=== PATIENT | male | born 1970 | race Caucasian/White ===

== ENCOUNTER 2017-12-20 21:46 | Observation (INO) | payer BC ==
[2017-12-20] MEDS ORDERED: ASPIRIN 81 MG CHEW TAB PO ONE (21:59)
--- NOTE | 2017-12-20 21:59 | ED Physician Documentation ---
General Adult - HISTORIAN Historian: patient, spouse - HPI Stated Complaint: chest pain Chief Complaint: General Adult Onset: hours Timing: still present Severity: moderate Further Comments: yes (Pt is a 47 yo male with hx HTN, gout, GERD, who c/o chest pain. Pt was noticed to be [id number] yesteday and this am. 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 He was confused at home about letting the dog out. This am he became nauseated and had chest pain at work. The pain radiated to his L shoulder blade. The pt attributed this to GERD and it went away. Chest pain occurred again this evening, toghether with nausea. Pt has had sob, but he had attributed that to his exertions at work. Pain is 2/10 severity on presentation. Pain was 7/10 earlier at home.) - ROS CONST: no problems EYES/ENT: none CVS/RESP: chest pain, shortness of breath GI/: nausea MS/SKIN/LYMPH: none - PAST HX Past History: other (GERD, GOUT, HTN, herpes zoster affecting eye) Surgeries/Procedures: other (appendectomy, orthopedic surg) Allergies/Adverse Reactions: Allergies Allergy/AdvReac Type Severity Reaction Status Date / Time No Known Allergies Allergy Unverified 12/20/17 22:10 Home Medications: Ambulatory Orders Medication Instructions Recorded Allopurinol [Zyloprim] 300 mg PO DAILY 12/20/17 Esomeprazole Magnesium [Nexium] 40 mg PO DAILY 12/20/17 Lisinopril [Prinivil] 20 mg PO QD 12/20/17 Metoprolol Tartrate [Lopressor] 50 mg PO BID 12/20/17 Spironolactone [Aldactone] 50 mg PO DAILY 12/20/17 Valacyclovir HCl [Valtrex] 500 mg PO DAILY 12/20/17 Venlafaxine HCl [Effexor Xr] 150 mg PO DAILY 12/20/17 - SOCIAL HX Smoking History: cigarettes - FAMILY HX Family History: No - REVIEWED ASSESSMENTS Nursing Assessment Reviewed: Yes Vitals Reviewed: Yes Progress - Progress Progress: chest pain 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 admit to ER physician for observation, r/o NV due to pt's sx and relief with nitro. - EKG/XRAY/CT EKG: NSR (HR=89; occasional PVC; normal EKG.) XRAY: chest (no acute process) General Adult Physical Exam - PHYSICAL EXAM GENERAL APPEARANCE: moderate distress EENT: pharynx normal NECK: normal inspection, supple RESPIRATORY: no resp distress, chest non-tender, breath sounds normal CVS: reg rate & rhythm, heart sounds normal ABDOMEN: soft, no organomegaly, normal bowel sounds BACK: normal inspection, no CVA tenderness SKIN: warm/dry, normal color EXTREMITIES: non-tender, normal range of motion, no evidence of injury NEURO: oriented X3, motor nml, sensation nml Discharge Clincal Impression: Chest pain Qualifiers: Chest pain type: unspecified Qualified Code(s): R07.9 - Chest pain, unspecified Referrals: Yamilka Arechiga MD [STAFF PHYSICIAN] - Condition: Stable Disposition: ADMITTED INPATIENT Decision to Admit: NO Decision Time: 00:51
[2017-12-20 22:11] LABS: BASOPHILS % 0.6 (0.0-1.5); EOSINOPHILS % 2.6 % (0.0-6.8); MEAN CORPUSCULAR HEMOGLOBIN 32.8 pg (28.0-34.0); MEAN CORPUSCULAR VOLUME 94.3 fl (80.0-100.0); MONOCYTES % 5.2 % (0.0-11.0); NEUTROPHILS # 5.6 # k/uL (1.4-7.7)
[2017-12-20] MEDS ORDERED: MAG HYDROX/AL HYDROX/SIMETH 30 ML UDC PO ONE (22:14)
[2017-12-20] MEDS ORDERED: Lidocaine 2%Visc 15ml 20 MG/ML UDC ONE (22:14)
[2017-12-20] MEDS ORDERED: MAG HYDROX/AL HYDROX/SIMETH 30 ML, Lidocaine 2%Visc 15ml 20 MG, PHENobarb/HYOSCY/ATROPI... PO ONE ×3 (22:14)
[2017-12-20] MEDS ORDERED: ONDANSETRON HCL/PF 4 MG/ 2ML VIAL ONE (22:18)
[2017-12-20] MEDS ORDERED: 0.9 % SODIUM CHLORIDE 500 ML IV ONE (22:24)
[2017-12-20] MEDS ORDERED: 0.9 % SODIUM CHLORIDE 1,000 ML IV ONE (22:24)
[2017-12-20] MEDS ORDERED: NITROGLYCERIN 0.4 MG TAB.SUBL SL ONE ×2 (22:24→22:25)
[2017-12-20] MEDS ORDERED: ONDANSETRON HCL/PF 4 MG/ 2ML VIAL IVP ONE (22:24)
[2017-12-20 22:30] LABS: eGFR (African) > 60; eGFR (Non-African) > 60
[2017-12-21] MEDS ORDERED: 0.9 % SODIUM CHLORIDE 1,000 ML IV ONE (01:08)
[2017-12-21 02:00] VITALS: BMI 29.0
[2017-12-21] MEDS ORDERED: LISINOPRIL 20 MG TABLET PO SCH (05:26)
--- NOTE | 2017-12-21 08:35 | Diagnostic Imaging Report ---
KEZIA PHOENIX [facility] [address] [facility] [address] [address] Report Submission Date: Dec 20, 2017 11:03:19 PM CDT Patient Study Name: KATELIN ROBLERO Date: Dec 20, 2017 10:39:49 PM CDT Modality Type: DX Gender: M Description: CHEST : 74 Institution: [facility] Physician: KEZIA PHOENIX Chest AP portable at 2239 hours of December 20, 2017. Clinical history: Dyspnea and chest pain. Normal heart shadow and mediastinum. Clear lungs without acute infiltrate or pleural effusion. Normal bony thorax. Impression: No active pulmonary pathology Electronically signed on Dec 20, 2017 11:03:19 PM CDT by: Derick MARIE
--- NOTE | 2017-12-21 08:36 | Diagnostic Imaging Report ---
JENNIFER WHITLEY (STRANDING MACHINE OPERATOR) - ER [facility] [address] [facility] [address] [place], [place]. [address] Report Submission Date: Dec 21, 2017 8:25:45 AM CDT Patient Study Name: KATELIN ROBLERO Date: Dec 21, 2017 8:00:54 AM CDT Modality Type: CT\SR Gender: M Description: CT BRAIN W/O CONTRAST : 74 Institution: [facility] Physician: JENNIFER WHITLEY (STRANDING MACHINE OPERATOR) - ER Examination: CT head without contrast History: CT HEAD W/O, INTERMITTENT CONFUSION SINCE YESTERDAY (Hx) / ITS.REASON confusion; intermittent (DICOM Hx) Comparison exam: None available Technique: Noncontrast head CT protocol. Findings: Ventricles and sulci are appropriate for patient age. Cerebrocerebellar parenchyma demonstrates normal attenuation. No evidence for parenchymal hemorrhage. No evidence for mass or mass effect. No midline shift. No extra axial fluid collections. Partial visualization of the paranasal sinuses demonstrates maxillary sinus air fluid levels. Mastoid air cells, orbits , skull and scalp without gross irregularity. Impression: No acute parenchymal process. No hemorrhage. Bilateral maxillary sinus air-fluid levels. Electronically signed on Dec 21, 2017 8:25:45 AM CDT by: Krzysztof MARIE
[2017-12-21] MEDS ORDERED: ALLOPURINOL 100 MG TABLET PO SCH (09:00)
[2017-12-21] MEDS ORDERED: VENLAFAXINE HCL 37.5 MG CAP.ER.24H PO SCH (09:00)
[2017-12-21] MEDS ORDERED: METOPROLOL TARTRATE 50 MG TABLET PO SCH (09:00)
[2017-12-21] MEDS ORDERED: SPIRONOLACTONE 25 MG TABLET PO SCH (09:00)
[2017-12-21] MEDS ORDERED: PANTOPRAZOLE SODIUM 40 MG TABLET PO ONE (09:00)
[2017-12-21 11:19] VITALS: BP 118/73
--- NOTE | 2017-12-21 23:05 | Discharge Summary ---
Discharge Summary - Discharge Sumary History of Present Illness: 47 year old male patient admitted through Er with complaints of chest pain for Rule out NE. Condition at Discharge: Stable Home Medications: Ambulatory Orders Medication Instructions Recorded Allopurinol [Zyloprim] 300 mg PO DAILY 12/20/17 Esomeprazole Magnesium [Nexium] 40 mg PO DAILY 12/20/17 Lisinopril [Prinivil] 20 mg PO QD 12/20/17 Metoprolol Tartrate [Lopressor] 50 mg PO BID 12/20/17 Spironolactone [Aldactone] 50 mg PO DAILY 12/20/17 Valacyclovir HCl [Valtrex] 500 mg PO DAILY 12/20/17 Venlafaxine HCl [Effexor Xr] 150 mg PO DAILY 12/20/17 Allopurinol [Zyloprim] 300 mg PO DAILY tablet 12/21/17 Spironolactone [Aldactone] 50 mg PO DAILY tablet 12/21/17 Venlafaxine HCl [Effexor Xr] 150 mg PO DAILY cap.er.24h 12/21/17 Consultations this Visit: None Procedures this Visit: None Allergies/Adverse Reactions: Allergies Allergy/AdvReac Type Severity Reaction Status Date / Time No Known Allergies Allergy Unverified 12/20/17 22:10 Discharge Summary: Patient ruled out with negative cardiac enzymes. reports patient had transient period of confusion and disorientation on Monday and . CT Head completed - negative. Patient reports increased depression - started see psychiatrist last week, next appointment on Monday; denies suicidal plan; does admit to increased depression related to father's and feelings of worthlessness. Follow up appointment with [place] TAYLOR for Monday at 1030
== END 2017-12-21 13:05 | disposition home or self-care (01) ==
LOC: ED 21:46 → SOUTH 21:48 → UNDOADMOB 12-21 01:07 → UNDODISOB 12-21 13:05
PROVIDERS: ADMIT Emergency Medicine; ATTEND Emergency Medicine
DX: R07.9 Chest pain, unspecified (principal); I10 Essential (primary) hypertension; F41.8 Other specified anxiety disorders; M10.9 Gout, unspecified; K21.9 Gastro-esophageal reflux disease without esophagitis
CPT/HCPCS: 36415; 70450; 71045; 80053; 80061; 82550; 82553; 84484; 85025; 85379; 93005; 96365; 96375; 99284; A9270; G0378; J2405; J7060; 99217; 99218; S1016

== ENCOUNTER 2017-12-25 15:42 | Outpatient (CLI) | payer BC | END 2017-12-25 15:43 | LOC: LAB 15:42 | PROVIDERS: ATTEND Nurse Practitioner Family | DX: R94.5 Abnormal results of liver function studies (principal) | CPT/HCPCS: 36415; 82728 ==

== ENCOUNTER 2018-10-04 14:57 | Outpatient (CLI) | payer BC ==
[2018-10-04 15:30] LABS: BASOPHILS % 0.7 (0.0-1.5); EOSINOPHILS % 3.2 % (0.0-6.8); MEAN CORPUSCULAR HEMOGLOBIN 32.6 pg (28.0-34.0); MONOCYTES % 6.6 % (0.0-11.0); NEUTROPHILS # 5.2 # k/uL (1.4-7.7)
--- NOTE | 2018-10-04 20:59 | Diagnostic Imaging Report ---
NARCISO MEYER [facility] [address] [facility] [address] [address] Report Submission Date: Oct 04, 2018 4:14:25 PM CHIEF DEPUTY CORONER Patient Study Name: KATELIN ROBLERO Date: Oct 04, 2018 3:00:24 PM CHIEF DEPUTY CORONER Modality Type: DX Gender: M Description: CHEST : 74 Institution: [facility] Physician: NARCISO MEYER Examination: PA and lateral chest. History: Evaluate lung hobson. Comparison exam: 20 December 2017 Findings: PA and lateral views of the chest demonstrates a normal cardiac and mediastinal silhouette. No focal infiltrate. No blunting of the costophrenic margins. Osseous structures are appropriate for age. Impression: No acute pulmonary process. Electronically signed on Oct 04, 2018 4:14:25 PM CHIEF DEPUTY CORONER by: Krzysztof MARIE
== END 2018-10-04 15:00 ==
LOC: LAB 14:57
PROVIDERS: ATTEND Family Medicine
DX: R50.9 Fever, unspecified (principal)
CPT/HCPCS: 36415; 71046; 85025

== ENCOUNTER 2019-06-15 09:00 | Outpatient (CLI) | payer BC ==
[2019-06-27 08:08] LABS: BASOPHILS % 0.5 % (0.0-1.5); NEUTROPHILS # 4.9 # k/uL (1.4-7.7); eGFR (Non-African) > 60
== END 2019-06-15 09:15 ==
LOC: LAB 09:00
PROVIDERS: ATTEND Orthopaedic Surgery
DX: M75.42 Impingement syndrome of left shoulder (principal); M19.012 Primary osteoarthritis, left shoulder; S43.52XA Sprain of left acromioclavicular joint, initial encounter; X50.9XXA Other and unspecified overexertion or strenuous movements or postures, initial encounter
CPT/HCPCS: 36415; 80053; 85025